=== PATIENT | female | born 1970 | race Caucasian/White ===

== ENCOUNTER → 2016-11-17 | Outpatient (CLI) | payer OTHER ==
[~2016-11-17] MED LIST: GADAVIST IV PRN
--- NOTE | 2016-11-17 12:55 | DIAGNOSTIC IMAGING REPORT ---
Brain MRI WITH AND WITHOUT CONTRAST HISTORY: Multiple sclerosis. TECHNIQUE: Multiplanar multisequence MRI of the brain was performed both before and after the intravenous administration of contrast. COMPARISON STUDY: None. FINDINGS: No areas of restricted diffusion to suggest acute infarction. Small focal defect within the anterior body of the corpus callosum. There is also mild atrophy of the posterior corpus callosum. The remaining midline structures are intact. The orbits are unremarkable. Multiple scattered foci of T2 hyperintensity seen within the periventricular and subcortical white matter. This includes more confluent areas within the periatrial locations. The major vascular flow-voids at the skull base are well-maintained. The ventricles are normal in size. Paranasal sinuses and mastoid air cells are clear. No abnormal enhancement. Multiple periventricular T1 dark holes. Small focal areas of T2 hyperintensity seen within the right middle cerebellar peduncle and left cerebellar hemisphere. No mass, hematoma, midline shift. IMPRESSION: Extensive white matter plaques within the supratentorial and infratentorial brain consistent with the patient's history of multiple sclerosis. No abnormal enhancement to suggest active demyelination. Electronically signed by: Feroz Vergara M.D. 11/17/2016 12:54 PM Dictated Date/Time: 11/17/2016 12:44 PM
--- NOTE | 2016-11-17 12:58 | DIAGNOSTIC IMAGING REPORT ---
MRI OF THE CERVICAL SPINE WITH AND WITHOUT CONTRAST CLINICAL HISTORY: Multiple sclerosis. COMPARISON: None available at time of interpretation. TECHNIQUE: Utilizing a 1.5 Freida magnet and dedicated coil, multiplanar, multiecho imaging of the cervical spine was performed before and after intravenous administration of 8.5 of Gadavist. FINDINGS: Alignment of the cervical spine is anatomic. Vertebral body heights are maintained. There is no marrow replacement. No intracanalicular mass or fluid collection is present. There is no abnormal cervical cord enhancement. There are extensive multifocal foci of signal abnormality throughout the cervical cord. These are predominantly central in location and are best shown on the sagittal STIR and axial merge sequences. There is no associated cord enhancement. Cord caliber is normal. C2-C3: The central canal and neural foramen are patent. C3-C4: The central canal and neural foramen are patent. C4-C5: The central canal and neural foramen are patent. C5-C6: Mild disc bulge result in mild narrowing of the central canal. There is mild narrowing of both neural foramen at this level. C6-C7: There is a tiny central disc protrusion. Central canal and neural foramen are patent. C7-T1: Central canal and neural foramen are patent. IMPRESSION: 1. Extensive multifocal signal abnormality throughout the cervical cord consistent with demyelination given the clinical history. No MRI evidence for active demyelination. If prior exam becomes available, comparison could be performed. 2. Mild degenerative disc disease at C5-C6. Electronically signed by: Isauro Melton M.D. 11/17/2016 12:56 PM Dictated Date/Time: 11/17/2016 12:50 PM
--- NOTE | 2016-11-17 13:04 | DIAGNOSTIC IMAGING REPORT ---
THORACIC SPINE COMBO CLINICAL HISTORY: Multiple sclerosis. COMPARISON STUDY: None available at time of interpretation. TECHNIQUE: Utilizing a 1.5 Freida magnet, multiplanar, multiecho imaging of the thoracic spine was performed pre and postcontrast administration. Injection of 8.5 cc of Gadavist IV was uneventful. FINDINGS: Alignment of the thoracic spine is anatomic. Vertebral body heights are maintained. There is no suspicious marrow replacement. A few T1 and T2 hyperintense lesions reflect hemangiomas. There is no intracanalicular mass or fluid collection. Paravertebral soft tissues are unremarkable. There is a small central disc protrusion at T6-T7 that results in mild narrowing of the central canal. This indents the ventral aspect of the cord. There are extensive innumerable foci of signal abnormality throughout the thoracic cord without associated enhancement. IMPRESSION: 1. Extensive multifocal signal abnormality throughout the thoracic cord consistent with demyelination given the clinical history. No evidence for active demyelination. If previous study becomes available, comparison could be performed. 2. Small disc protrusion at T6-T7 that results in mild narrowing of the central canal. Electronically signed by: Isauro Melton M.D. 11/17/2016 1:02 PM Dictated Date/Time: 11/17/2016 12:56 PM
[2016-11-17 13:43] LABS: BASO % 0.4 %; BASO ABS # 0.03 K/uL (0-0.2); COMPLETE YES; EOS % 2.7 %; HEMATOCRIT 42.5 % (37-47); IG% 0.2 %; LYMPH % 16.5 %; MEAN CELL VOLUME 92.2 fL (80-100); MEAN CORPUSCULAR HEMOGLOBIN 30.8 pg (25-34); MEAN CORPUSCULAR HGB CONC 33.4 g/dl (32-36); MEAN PLATELET VOLUME 11.3 fL (7.4-10.4); MONO % 7.8 %; NEUT % 72.4 %; PLATELET COUNT 329 K/uL (130-400); RED BLOOD COUNT 4.61 M/uL (4.2-5.4); WHITE BLOOD COUNT 8.49 K/uL (4.8-10.8)
[2016-11-17 14:16] LABS: ALT/SGPT 24 U/L (12-78); AST/SGOT 17 U/L (15-37); BLOOD UREA NITROGEN 19 mg/dl (7-18); BUN/CREATININE RATIO 24.9 (10-20); CALCIUM 8.9 mg/dl (8.5-10.1); CARBON DIOXIDE 26 mmol/L (21-32); CHLORIDE 106 mmol/L (98-107); CREATININE 0.76 mg/dl (0.60-1.20); GLUCOSE 95 mg/dl (70-99); POTASSIUM 3.7 mmol/L (3.5-5.1); SODIUM 139 mmol/L (136-145)
[2016-11-17 14:22] LABS: ESTIMATED AVERAGE GLUCOSE 105 mg/dl; HA1C FLAG Normal (Normal)
[2016-11-17 14:25] LABS: ALKALINE PHOSPHATASE 60 U/L (45-117); TOTAL IRON BINDING CAPACITY 378 mcg/dl (250-450)
[2016-11-17 14:29] LABS: LYME DISEASE AB IGG NEG (NEG)
[2016-11-17 14:32] LABS: LYME DISEASE AB IGM NEG (NEG)
[2016-11-23 16:06] LABS: ANTI-CENTROMERE AB <1.0 NEG AI (<1.0 NEG); ANTI-SS-A <1.0 NEG AI (<1.0 NEG); ANTI-SS-B <1.0 NEG AI (<1.0 NEG); DNA ds CRITHIDIA NEGATIVE (NEGATIVE); MICROSOMAL AB 1 IU/ML (<9); Sm Antibody <1.0 NEG AI (<1.0 NEG)
== END | disposition home or self-care (01) ==
LOC: C.MRIBC 09:06
PROVIDERS: ATTEND Psychiatry & Neurology Neurology
DX: G35 Multiple sclerosis (principal); M25.50 Pain in unspecified joint; R53.82 Chronic fatigue, unspecified; F32.9 Major depressive disorder, single episode, unspecified; E55.9 Vitamin D deficiency, unspecified